=== PATIENT | female | born 1990 | race Caucasian/White ===

== ENCOUNTER 2017-06-04 07:50 | Inpatient (IN) | payer OTHER ==
[2017-06-04] MEDS ORDERED: CEFAZOLIN 2 GM/50 ML (PMX) 50 ML IVPB (08:27)
[2017-06-04] MEDS ORDERED: MISOPROSTOL 200 MCG TAB PR ×3 (08:30→16:00)
[2017-06-04] MEDS ORDERED: OXYTOCIN 30 UNITS/LR 500 ML IV ×4 (08:30→16:00)
[2017-06-04] MEDS: CITRIC ACID/SODIUM CITRATE 15 ML CUP PO (08:30)
[2017-06-04] MEDS ORDERED: CARBOPROST 250 MCG INJ IM ×3 (08:30→16:00)
[2017-06-04] MEDS ORDERED: CEFAZOLIN 2 GM/50 ML (PMX) 50 ML IV (08:30)
[2017-06-04] MEDS ORDERED: METHYLERGONOVINE 0.2 MG INJ IM ×3 (08:30→16:00)
[2017-06-04 08:36] LABS: ADD MAN DIFF? NO
[2017-06-04 08:40] LABS: ABNORMAL IP MESSAGE 1; BASOPHILS % 0.5 % (0.0-2.0); EOSINOPHILS # 0.1 10^3/ul (0.0-0.5); EOSINOPHILS % 0.8 % (0.0-7.0); HEMATOCRIT 36.3 % (37.0-47.0); HEMOGLOBIN 11.9 g/dl (12.0-16.0); LYMPHOCYTES # 2.2 10^3/ul (0.8-2.9); LYMPHOCYTES % 25.8 % (15.0-51.0); MEAN CORPUSCULAR HEMOGLOBIN 26.9 pg (29.0-33.0); MEAN CORPUSCULAR HGB CONC 32.8 g/dl (32.0-37.0); MEAN CORPUSCULAR VOLUME 82.1 fl (82.0-101.0); MONOCYTE # 0.4 10^3/ul (0.3-0.9); MONOCYTES % 5.2 % (0.0-11.0); NEUTROPHIL # 5.6 10^3/ul (1.6-7.5); NEUTROPHILS % 67.5 % (39.0-77.0); PLATELET COUNT 118 10^3/UL (140-415); RED BLOOD COUNT 4.42 10^6/ul (4.20-5.40); RED CELL DISTRIBUTION WIDTH 14.6 % (11.5-14.5)
[2017-06-04 08:40] LABS: WHITE BLOOD COUNT 8.3 10^3/ul (4.8-10.8)
[2017-06-04] MEDS ORDERED: METOCLOPRAMIDE 10 MG INJ (08:41)
[2017-06-04] MEDS ORDERED: morphine SULFATE/PF (10 MG/10 ML) INJ (08:41)
[2017-06-04] MEDS ORDERED: KETOROLAC 30 MG INJ (08:41)
[2017-06-04] MEDS ORDERED: ONDANSETRON 4 MG INJ (08:41)
[2017-06-04] MEDS: LACTATED RINGER'S 1,000 ML IV ×3 (08:41→12:13)
[2017-06-04 08:49] LABS: POSITIVE DIFF @See below
[2017-06-04 09:00] LABS: INR 0.82; PROTIME 11.4 Sec (11.9-14.9); PT RATIO 0.9
[2017-06-04 09:29] LABS: HEPATITIS B SURFACE ANTIGEN NEGATIVE (NEGATIVE)
[2017-06-04] MEDS ORDERED: BUTORPHANOL 2 MG INJ IV (10:00)
[2017-06-04] MEDS ORDERED: IBUPROFEN 600 MG TAB PO (10:00)
[2017-06-04] MEDS ORDERED: LIDOCAINE 1% (MPF) 30 ML INJ INJ (10:00)
[2017-06-04] MEDS ORDERED: FENTAnyl 2MCG/ML-ROPIV 0.2% 100 ML (10:03)
[2017-06-04] MEDS ORDERED: AMPICILLIN 2 GM/NS (PMX) 100 ML (10:28)
[2017-06-04] MEDS: AMPICILLIN 2 GM/NS (PMX) 100 ML IVPB (10:30)
[2017-06-04] MEDS ORDERED: AMPICILLIN 1 GM/NS (PMX) 50 ML IVPB (13:00)
[2017-06-04] MEDS: OXYTOCIN 30 UNITS/LR 500 ML IV (13:59)
[2017-06-04 15:19] LABS: RAPID PLASMA REAGIN NONREACTIVE (NR)
[2017-06-04] MEDS: LACTATED RINGER'S 1,000 ML IV* ×2 (15:46→23:46)
[2017-06-04] MEDS ORDERED: ZOLPIDEM 5 MG TAB PO (16:00)
[2017-06-04] MEDS ORDERED: HYDROCODONE/APAP (5/325) TAB PO ×2 (16:00)
[2017-06-04] MEDS: BENZOCAINE 20% 56 ML SPRAY TOP (18:19)
[2017-06-04] MEDS: DIBUCAINE 1% 30 GM OINT TOP (18:19)
[2017-06-04] MEDS: WITCH HAZEL/GLYCERIN PAD PR (18:19)
[2017-06-04] MEDS: LANOLIN 7 GM TUBE TOP (18:20)
[2017-06-04] MEDS: CEPHALEXIN 500 MG CAP PO (18:20)
[2017-06-04] MEDS: IBUPROFEN 600 MG TAB PO (18:20)
[2017-06-04] MEDS: MAGNESIUM HYDROXIDE 30ML CUP PO (20:55)
[2017-06-04] MEDS: SENNA/DOCUSATE NA (8.6MG/50MG) TAB PO (20:55)
[2017-06-05] MEDS: IBUPROFEN 600 MG TAB PO ×5 (00:08→23:55)
[2017-06-05] MEDS: CEPHALEXIN 500 MG CAP PO ×5 (00:08→23:55)
[2017-06-05 08:20] LABS: ADD MAN DIFF? NO
[2017-06-05 08:26] LABS: WHITE BLOOD COUNT 10.9 10^3/ul (4.8-10.8)
[2017-06-05 08:26] LABS: ABNORMAL IP MESSAGE 1; BASOPHIL # 0.1 10^3/ul (0.0-0.1); BASOPHILS % 0.5 % (0.0-2.0); EOSINOPHILS # 0.1 10^3/ul (0.0-0.5); EOSINOPHILS % 0.9 % (0.0-7.0); HEMATOCRIT 31.1 % (37.0-47.0); HEMOGLOBIN 10.1 g/dl (12.0-16.0); LYMPHOCYTES # 2.4 10^3/ul (0.8-2.9); LYMPHOCYTES % 21.8 % (15.0-51.0); MEAN CORPUSCULAR HEMOGLOBIN 26.6 pg (29.0-33.0); MEAN CORPUSCULAR HGB CONC 32.5 g/dl (32.0-37.0); MEAN CORPUSCULAR VOLUME 82.1 fl (82.0-101.0); MONOCYTE # 0.7 10^3/ul (0.3-0.9); NEUTROPHIL # 7.7 10^3/ul (1.6-7.5); NEUTROPHILS % 70.5 % (39.0-77.0); PLATELET COUNT 97 10^3/UL (140-415); RED BLOOD COUNT 3.79 10^6/ul (4.20-5.40); RED CELL DISTRIBUTION WIDTH 14.8 % (11.5-14.5)
[2017-06-05 08:37] LABS: POSITIVE DIFF @See below
[2017-06-05] MEDS: MAGNESIUM HYDROXIDE 30ML CUP PO ×2 (09:21→21:00)
[2017-06-05] MEDS: SENNA/DOCUSATE NA (8.6MG/50MG) TAB PO ×2 (09:21→21:00)
[2017-06-05] MEDS: LACTATED RINGER'S 1,000 ML IV* ×3 (19:00→23:46)
[2017-06-06] MEDS: IBUPROFEN 600 MG TAB PO ×2 (06:12→11:49)
[2017-06-06] MEDS: CEPHALEXIN 500 MG CAP PO ×2 (06:12→11:49)
[2017-06-06] MEDS: LACTATED RINGER'S 1,000 ML IV* (07:46)
[2017-06-06] MEDS: MAGNESIUM HYDROXIDE 30ML CUP PO (09:00)
[2017-06-06] MEDS: SENNA/DOCUSATE NA (8.6MG/50MG) TAB PO (09:00)
[2017-06-06] MEDS: VARICELLA VACCINE LIVE/PF 1,350 UNIT/0.5 ML ML SC* (09:04)
[2017-06-06] MEDS: MEASLES,MUMPS,RUBELLA VACCINE INJ SC* (09:04)
[2017-06-06] MEDS: DIPHTH/TET/ACEL PERTUSS (ADULT) 0.5 ML VIAL IM* (09:05)
== END 2017-06-06 13:10 | disposition home or self-care (01) | DRG 775 ==
LOC: OBT 07:50 → L-D 07:52 → OBT 08:15 → L-D 08:15 → PP1 15:55
PROVIDERS: Obstetrics & Gynecology
PROC: 10E0XZZ Delivery of Products of Conception, External Approach (ICD-10-PCS; principal; 2017-06-04)
PROC: 3E0P7VZ Introduction of Hormone into Female Reproductive, Via Natural or Artificial Opening (ICD-10-PCS; 2017-06-04)
DX: O34.211 Maternal care for low transverse scar from previous cesarean delivery (principal); Z37.0 Single live birth; Z3A.37 37 weeks gestation of pregnancy
CPT/HCPCS: 62319; 76815; 85025; 85610; 85730; 86592; 86850; 86900; 86901; 87340

== ENCOUNTER 2017-10-22 02:22 | Emergency (ER) | payer OTHER ==
[2017-10-22] MEDS: ONDANSETRON 4 MG INJ IV (03:22)
[2017-10-22] MEDS: KETOROLAC 15 MG INJ IV (03:23)
[2017-10-22] MEDS: SOD CHLORIDE 0.9% 1,000 ML IV (03:23)
[2017-10-22] MEDS: DICYCLOMINE 20 MG INJ IM (03:31)
== END 2017-10-22 04:15 | disposition home or self-care (01) ==
LOC: E/R 02:22
DX: R10.13 Epigastric pain (principal); E86.0 Dehydration
CPT/HCPCS: 81025; 96372; 96374; 96375; 99284-25

== ENCOUNTER 2017-10-23 15:44 | Inpatient (IN) | payer OTHER ==
[2017-10-23] MEDS: LIDOCAINE/MYLANTA 40 ML BTL PO (18:06)
[2017-10-23] MEDS: ONDANSETRON 4 MG INJ IV (18:06)
[2017-10-23] MEDS: SOD CHLORIDE 0.9% 1,000 ML IV ×3 (18:06→20:10)
[2017-10-23 18:22] LABS: ADD MAN DIFF? NO
[2017-10-23 18:25] LABS: WHITE BLOOD COUNT 22.3 10^3/ul (4.8-10.8)
[2017-10-23 18:25] LABS: ABNORMAL IP MESSAGE 1; BASOPHIL # 0.1 10^3/ul (0.0-0.1); BASOPHILS % 0.2 % (0.0-2.0); EOSINOPHILS % 0.2 % (0.0-7.0); HEMATOCRIT 39.9 % (37.0-47.0); HEMOGLOBIN 13.3 g/dl (12.0-16.0); LYMPHOCYTES # 1.9 10^3/ul (0.8-2.9); LYMPHOCYTES % 8.6 % (15.0-51.0); MEAN CORPUSCULAR HEMOGLOBIN 27.1 pg (29.0-33.0); MEAN CORPUSCULAR HGB CONC 33.3 g/dl (32.0-37.0); MEAN CORPUSCULAR VOLUME 81.3 fl (82.0-101.0); MEAN PLATELET VOLUME 12.2 fl (7.4-10.4); MONOCYTES % 8.7 % (0.0-11.0); NEUTROPHIL # 18.2 10^3/ul (1.6-7.5); NEUTROPHILS % 81.7 % (39.0-77.0); PLATELET COUNT 251 10^3/UL (140-415); RED BLOOD COUNT 4.91 10^6/ul (4.20-5.40); RED CELL DISTRIBUTION WIDTH 15.2 % (11.5-14.5)
[2017-10-23 18:30] LABS: ADD UMIC YES; UR ASCORBIC ACID NEGATIVE (NEGATIVE); UR BACTERIA FEW /HPF (NONE SEEN); UR BILIRUBIN (Dip) NEGATIVE (NEGATIVE); UR BLOOD (Dip) 2+ mg/dL (NEGATIVE); UR CLARITY SLIGHTLY CLOUDY (CLEAR); UR COLOR YELLOW (YELLOW); UR GLUCOSE (Dip) NEGATIVE (NEGATIVE); UR KETONES (Dip) NEGATIVE (NEGATIVE); UR LEUKOCYTE ESTERASE (Dip) NEGATIVE Leu/ul (NEGATIVE); UR MUCUS FEW /HPF (NONE SEEN); UR NITRITE (Dip) NEGATIVE (NEGATIVE); UR RBC 1 /HPF (0-5); UR SPECIFIC GRAVITY (Dip) 1.016 (1.003-1.030); UR SQUAMOUS EPITHELIAL CELL FEW /HPF (FEW); UR TOTAL PROTEIN (Dip) 2+ mg/dl (NEGATIVE); UR UROBILINOGEN (Dip) 1+ mg/dL (NEGATIVE); UR WBC 4 /HPF (0-5)
[2017-10-23 18:41] LABS: POSITIVE DIFF @See below
[2017-10-23 19:05] LABS: ALANINE AMINOTRANSFERASE 57 IU/L (13-69); ALBUMIN 4.2 g/dl (3.3-4.9); ALBUMIN/GLOBULIN RATIO 1.27; ALKALINE PHOSPHATASE 113 IU/L (42-121); ANION GAP 17 (8-16); ASPARTATE AMINO TRANSFERASE 32 IU/L (15-46); BILIRUBIN,INDIRECT 2.6 mg/dl (0-1.1); BILIRUBIN,TOTAL 2.6 mg/dl (0.2-1.3); BLOOD UREA NITROGEN 12 mg/dl (7-20); CALCIUM 8.4 mg/dl (8.4-10.2); CARBON DIOXIDE 24 mmol/L (21-31); CHLORIDE 101 mmol/L (97-110); CREATININE 0.63 mg/dl (0.44-1.00); GLUCOSE 121 mg/dl (70-220); POTASSIUM 3.6 mmol/L (3.5-5.1); SODIUM 138 mmol/L (135-144); TOTAL PROTEIN 7.5 g/dl (6.1-8.1)
[2017-10-23 19:12] LABS: LIPASE 3628 U/L (23-300)
[2017-10-23] MEDS: morphine 4 MG/ML VIAL IV (19:18)
[2017-10-23] MEDS: PIPER-TAZO 3.375 GM IV (PMX) 100 ML IVPB (19:55)
[2017-10-23] MEDS: HYDROmorphONE 0.5 MG/0.5 ML SYG IV (20:27)
[2017-10-23] MEDS: HYDROmorphONE 2 MG/ML SYG IV (21:49)
[2017-10-24] MEDS: HYDROmorphONE 0.5 MG/0.5 ML SYG IV (01:30)
[2017-10-24] MEDS ORDERED: MAGNESIUM HYDROXIDE 30ML CUP PO (02:00)
[2017-10-24] MEDS ORDERED: NACL 0.9% 3 ML SYG IV (02:00)
[2017-10-24] MEDS ORDERED: ZOLPIDEM 5 MG TAB PO (02:00)
[2017-10-24] MEDS ORDERED: DOCUSATE SODIUM 100 MG CAP PO (02:00)
[2017-10-24] MEDS ORDERED: ACETAMINOPHEN 650 MG SUPP PR (02:00)
[2017-10-24] MEDS ORDERED: BISACODYL (EC) 5 MG TAB PO (02:00)
[2017-10-24] MEDS: DEXTROSE 5%-0.45% NACL 1,000 ML IV ×4 (02:43→20:04)
[2017-10-24] MEDS: morphine 2 MG INJ IV ×5 (02:49→23:35)
[2017-10-24] MEDS: PANTOPRAZOLE 40 MG INJ IV (05:48)
[2017-10-24] MEDS: CEFTRIAXONE 1 GM/50 ML (PMX) 50 ML IVPB (08:29)
[2017-10-24] MEDS: ACETAMINOPHEN 325 MG TAB PO (10:26)
[2017-10-25] MEDS: DEXTROSE 5%-0.45% NACL 1,000 ML IV ×2 (04:34→14:17)
[2017-10-25] MEDS: PANTOPRAZOLE 40 MG INJ IV (04:38)
[2017-10-25 05:30] LABS: ADD MAN DIFF? NO
[2017-10-25 05:37] LABS: WHITE BLOOD COUNT 14.6 10^3/ul (4.8-10.8)
[2017-10-25 05:37] LABS: ABNORMAL IP MESSAGE 1; BASOPHILS % 0.3 % (0.0-2.0); EOSINOPHILS # 0.3 10^3/ul (0.0-0.5); EOSINOPHILS % 1.8 % (0.0-7.0); HEMATOCRIT 31.7 % (37.0-47.0); HEMOGLOBIN 10.5 g/dl (12.0-16.0); LYMPHOCYTES # 1.8 10^3/ul (0.8-2.9); LYMPHOCYTES % 12.5 % (15.0-51.0); MEAN CORPUSCULAR HEMOGLOBIN 27.8 pg (29.0-33.0); MEAN CORPUSCULAR HGB CONC 33.1 g/dl (32.0-37.0); MEAN CORPUSCULAR VOLUME 83.9 fl (82.0-101.0); MEAN PLATELET VOLUME 11.6 fl (7.4-10.4); MONOCYTE # 1.9 10^3/ul (0.3-0.9); MONOCYTES % 13.2 % (0.0-11.0); NEUTROPHIL # 10.4 10^3/ul (1.6-7.5); NEUTROPHILS % 71.7 % (39.0-77.0); PLATELET COUNT 194 10^3/UL (140-415); RED BLOOD COUNT 3.78 10^6/ul (4.20-5.40); RED CELL DISTRIBUTION WIDTH 15.1 % (11.5-14.5)
[2017-10-25 05:52] LABS: ALANINE AMINOTRANSFERASE 34 IU/L (13-69); ALBUMIN 3.1 g/dl (3.3-4.9); ALKALINE PHOSPHATASE 85 IU/L (42-121); ANION GAP 8 (8-16); ASPARTATE AMINO TRANSFERASE 19 IU/L (15-46); BILIRUBIN,INDIRECT 1.2 mg/dl (0-1.1); BILIRUBIN,TOTAL 1.2 mg/dl (0.2-1.3); BLOOD UREA NITROGEN 2 mg/dl (7-20); CALCIUM 7.7 mg/dl (8.4-10.2); CARBON DIOXIDE 30 mmol/L (21-31); CHLORIDE 102 mmol/L (97-110); CREATININE 0.54 mg/dl (0.44-1.00); GLUCOSE 96 mg/dl (70-220); SODIUM 137 mmol/L (135-144); TOTAL PROTEIN 6.2 g/dl (6.1-8.1)
[2017-10-25 05:55] LABS: POSITIVE DIFF @See below
[2017-10-25 06:10] LABS: HEMOGLOBIN A1C 5.4 % (0-5.9)
[2017-10-25] MEDS: CEFTRIAXONE 1 GM/50 ML (PMX) 50 ML IVPB (08:50)
[2017-10-25] MEDS: POTASSIUM CHLORIDE 100 ML IVPB ×2 (14:17→16:17)
[2017-10-25] MEDS: morphine 2 MG INJ IV ×2 (14:25→22:30)
[2017-10-25 17:40] LABS: LIPASE 1330 U/L (23-300)
[2017-10-26] MEDS: DEXTROSE 5%-0.45% NACL 1,000 ML IV ×3 (04:44→20:09)
[2017-10-26 05:32] LABS: ADD MAN DIFF? NO
[2017-10-26] MEDS: PANTOPRAZOLE 40 MG INJ IV (05:32)
[2017-10-26 05:38] LABS: WHITE BLOOD COUNT 13.3 10^3/ul (4.8-10.8)
[2017-10-26 05:38] LABS: ABNORMAL IP MESSAGE 1; BASOPHIL # 0.1 10^3/ul (0.0-0.1); BASOPHILS % 0.4 % (0.0-2.0); EOSINOPHILS # 0.3 10^3/ul (0.0-0.5); EOSINOPHILS % 2.3 % (0.0-7.0); HEMOGLOBIN 10.4 g/dl (12.0-16.0); LYMPHOCYTES # 1.8 10^3/ul (0.8-2.9); LYMPHOCYTES % 13.9 % (15.0-51.0); MEAN CORPUSCULAR HGB CONC 33.5 g/dl (32.0-37.0); MEAN CORPUSCULAR VOLUME 83.6 fl (82.0-101.0); MEAN PLATELET VOLUME 11.3 fl (7.4-10.4); MONOCYTE # 1.7 10^3/ul (0.3-0.9); MONOCYTES % 12.9 % (0.0-11.0); NEUTROPHIL # 9.3 10^3/ul (1.6-7.5); PLATELET COUNT 231 10^3/UL (140-415); RED BLOOD COUNT 3.71 10^6/ul (4.20-5.40); RED CELL DISTRIBUTION WIDTH 15.2 % (11.5-14.5)
[2017-10-26 05:46] LABS: POSITIVE DIFF @See below
[2017-10-26 05:55] LABS: LIPASE 1095 U/L (23-300)
[2017-10-26 06:02] LABS: ALANINE AMINOTRANSFERASE 37 IU/L (13-69); ALBUMIN 3.1 g/dl (3.3-4.9); ALBUMIN/GLOBULIN RATIO 0.93; ALKALINE PHOSPHATASE 139 IU/L (42-121); ANION GAP 10 (8-16); ASPARTATE AMINO TRANSFERASE 24 IU/L (15-46); BILIRUBIN,INDIRECT 1.2 mg/dl (0-1.1); BILIRUBIN,TOTAL 1.2 mg/dl (0.2-1.3); BLOOD UREA NITROGEN 4 mg/dl (7-20); CALCIUM 8.3 mg/dl (8.4-10.2); CARBON DIOXIDE 29 mmol/L (21-31); CHLORIDE 101 mmol/L (97-110); CREATININE 0.63 mg/dl (0.44-1.00); GLUCOSE 87 mg/dl (70-220); POTASSIUM 3.8 mmol/L (3.5-5.1); SODIUM 136 mmol/L (135-144); TOTAL PROTEIN 6.4 g/dl (6.1-8.1)
[2017-10-26] MEDS: CEFTRIAXONE 1 GM/50 ML (PMX) 50 ML IVPB (08:41)
[2017-10-26] MEDS: morphine 2 MG INJ IV ×3 (12:05→23:00)
[2017-10-27] MEDS: DEXTROSE 5%-0.45% NACL 1,000 ML IV ×3 (04:35→22:14)
[2017-10-27] MEDS: PANTOPRAZOLE 40 MG INJ IV (05:19)
[2017-10-27] MEDS: CEFTRIAXONE 1 GM/50 ML (PMX) 50 ML IVPB (08:56)
[2017-10-27] MEDS: morphine 2 MG INJ IV ×2 (09:40→22:15)
[2017-10-27 10:59] LABS: LIPASE 932 U/L (23-300)
[2017-10-27] MEDS: ONDANSETRON 4 MG INJ IV (22:15)
[2017-10-28] MEDS: PANTOPRAZOLE 40 MG INJ IV (05:10)
[2017-10-28] MEDS: DEXTROSE 5%-0.45% NACL 1,000 ML IV ×3 (05:12→20:39)
[2017-10-28 05:34] LABS: ADD MAN DIFF? NO
[2017-10-28 05:38] LABS: WHITE BLOOD COUNT 8.8 10^3/ul (4.8-10.8)
[2017-10-28 05:38] LABS: BASOPHILS % 0.5 % (0.0-2.0); EOSINOPHILS # 0.3 10^3/ul (0.0-0.5); EOSINOPHILS % 3.9 % (0.0-7.0); HEMATOCRIT 29.6 % (37.0-47.0); HEMOGLOBIN 9.8 g/dl (12.0-16.0); LYMPHOCYTES # 2.4 10^3/ul (0.8-2.9); LYMPHOCYTES % 27.9 % (15.0-51.0); MEAN CORPUSCULAR HEMOGLOBIN 27.8 pg (29.0-33.0); MEAN CORPUSCULAR HGB CONC 33.1 g/dl (32.0-37.0); MEAN CORPUSCULAR VOLUME 83.9 fl (82.0-101.0); MEAN PLATELET VOLUME 10.6 fl (7.4-10.4); MONOCYTES % 11.1 % (0.0-11.0); NEUTROPHIL # 4.9 10^3/ul (1.6-7.5); NEUTROPHILS % 56.1 % (39.0-77.0); PLATELET COUNT 318 10^3/UL (140-415); RED BLOOD COUNT 3.53 10^6/ul (4.20-5.40); RED CELL DISTRIBUTION WIDTH 15.3 % (11.5-14.5)
[2017-10-28 05:58] LABS: LIPASE 1032 U/L (23-300)
[2017-10-28 07:26] LABS: ANION GAP 10 (8-16); CALCIUM 8.6 mg/dl (8.4-10.2); CARBON DIOXIDE 27 mmol/L (21-31); CHLORIDE 106 mmol/L (97-110); CREATININE 0.54 mg/dl (0.44-1.00); GLUCOSE 99 mg/dl (70-220); SODIUM 140 mmol/L (135-144)
[2017-10-28 07:39] LABS: BLOOD UREA NITROGEN < 2 mg/dl (7-20)
[2017-10-28 07:40] LABS: POTASSIUM 2.9 mmol/L (3.5-5.1)
[2017-10-28] MEDS: CEFTRIAXONE 1 GM/50 ML (PMX) 50 ML IVPB (09:04)
[2017-10-28] MEDS: POTASSIUM CHLORIDE 100 ML IVPB ×2 (09:53→11:00)
[2017-10-28] MEDS: POTASSIUM CHLORIDE (SR) 20 MEQ TAB PO (17:54)
[2017-10-29 06:03] LABS: ADD MAN DIFF? NO
[2017-10-29 06:06] LABS: BASOPHILS % 0.4 % (0.0-2.0); EOSINOPHILS # 0.3 10^3/ul (0.0-0.5); EOSINOPHILS % 3.6 % (0.0-7.0); HEMATOCRIT 30.9 % (37.0-47.0); LYMPHOCYTES # 1.9 10^3/ul (0.8-2.9); LYMPHOCYTES % 25.6 % (15.0-51.0); MEAN CORPUSCULAR HEMOGLOBIN 26.9 pg (29.0-33.0); MEAN CORPUSCULAR HGB CONC 32.4 g/dl (32.0-37.0); MEAN CORPUSCULAR VOLUME 83.1 fl (82.0-101.0); MEAN PLATELET VOLUME 10.3 fl (7.4-10.4); MONOCYTE # 0.9 10^3/ul (0.3-0.9); MONOCYTES % 11.5 % (0.0-11.0); NEUTROPHIL # 4.3 10^3/ul (1.6-7.5); NEUTROPHILS % 58.6 % (39.0-77.0); PLATELET COUNT 371 10^3/UL (140-415); RED BLOOD COUNT 3.72 10^6/ul (4.20-5.40); RED CELL DISTRIBUTION WIDTH 15.4 % (11.5-14.5)
[2017-10-29 06:06] LABS: WHITE BLOOD COUNT 7.4 10^3/ul (4.8-10.8)
[2017-10-29 06:35] LABS: ANION GAP 13 (8-16); BLOOD UREA NITROGEN 3 mg/dl (7-20); CALCIUM 8.7 mg/dl (8.4-10.2); CARBON DIOXIDE 25 mmol/L (21-31); CHLORIDE 107 mmol/L (97-110); CREATININE 0.58 mg/dl (0.44-1.00); GLUCOSE 104 mg/dl (70-220); LIPASE 1207 U/L (23-300); POTASSIUM 3.4 mmol/L (3.5-5.1); SODIUM 142 mmol/L (135-144)
[2017-10-29] MEDS: DEXTROSE 5%-0.45% NACL 1,000 ML IV ×2 (06:36→07:39)
[2017-10-29] MEDS: PANTOPRAZOLE 40 MG INJ IV (06:37)
[2017-10-29] MEDS: CEFTRIAXONE 1 GM/50 ML (PMX) 50 ML IVPB (08:57)
[2017-10-29] MEDS ORDERED: POTASSIUM CHLORIDE 100 ML IVPB (11:00)
[2017-10-29] MEDS: POTASSIUM CHLORIDE (SR) 20 MEQ TAB PO (11:47)
== END 2017-10-29 17:00 | disposition home or self-care (01) | DRG 440 ==
LOC: MS3 20:45 → MS1 10-28 08:00 → FTE 15:44
DX: K85.10 Biliary acute pancreatitis without necrosis or infection (principal); K80.20 Calculus of gallbladder without cholecystitis without obstruction; E87.6 Hypokalemia; D64.9 Anemia, unspecified; E66.9 Obesity, unspecified; Z68.36 Body mass index [BMI] 36.0-36.9, adult
CPT/HCPCS: 36415; 74176; 74181; 76705; 80048; 80053; 81001; 81025; 83036; 83690; 85025; 96374; 96375; 99285-25

== ENCOUNTER 2018-08-12 23:15 | Inpatient (IN) | payer OTHER ==
[2018-08-12] MEDS: LACTATED RINGER'S 1,000 ML IV ×2 (23:36→23:56)
[2018-08-13] MEDS ORDERED: LIDOCAINE 1% (MPF) 30 ML INJ INJ
[2018-08-13] MEDS ORDERED: BUTORPHANOL 2 MG INJ IV
[2018-08-13] MEDS ORDERED: IBUPROFEN 600 MG TAB PO
[2018-08-13] MEDS: AMPICILLIN 2 GM/NS (PMX) 100 ML IV (00:01)
[2018-08-13 00:03] LABS: ADD MAN DIFF? NO
[2018-08-13 00:11] LABS: WHITE BLOOD COUNT 9.5 10^3/ul (4.8-10.8)
[2018-08-13 00:11] LABS: ABNORMAL IP MESSAGE 1; BASOPHILS % 0.4 % (0.0-2.0); EOSINOPHILS # 0.1 10^3/ul (0.0-0.5); EOSINOPHILS % 1.3 % (0.0-7.0); HEMATOCRIT 32.3 % (37.0-47.0); LYMPHOCYTES % 31.1 % (15.0-51.0); MEAN CORPUSCULAR HEMOGLOBIN 25.3 pg (29.0-33.0); MEAN CORPUSCULAR VOLUME 81.6 fl (82.0-101.0); MONOCYTE # 0.6 10^3/ul (0.3-0.9); MONOCYTES % 6.2 % (0.0-11.0); NEUTROPHIL # 5.8 10^3/ul (1.6-7.5); NEUTROPHILS % 60.6 % (39.0-77.0); PLATELET COUNT 157 10^3/UL (140-415); RED BLOOD COUNT 3.96 10^6/ul (4.20-5.40); RED CELL DISTRIBUTION WIDTH 14.5 % (11.5-14.5)
[2018-08-13 00:19] LABS: MEAN PLATELET VOLUME 13.6 fl (7.4-10.4); POSITIVE DIFF @See below
[2018-08-13 00:30] LABS: INR 0.89; PARTIAL THROMBOPLASTIN TIME 27.2 Sec (23.0-35.0); PROTIME 12.2 Sec (11.9-14.9)
[2018-08-13 01:01] LABS: HEPATITIS B SURFACE ANTIGEN NEGATIVE (NEGATIVE)
[2018-08-13] MEDS: OXYTOCIN 30 UNITS/LR 500 ML IV ×2 (01:01→01:13)
[2018-08-13] MEDS ORDERED: AMPICILLIN 1 GM/NS (PMX) 50 ML IV (04:00)
[2018-08-13 04:19] LABS: AMPHETAMINE/METHAMPHETAMINE NEGATIVE (NEGATIVE); BARBITURATES NEGATIVE (NEGATIVE); BENZODIAZEPINES NEGATIVE (NEGATIVE); CANNABINOIDS POSITIVE (NEGATIVE); COCAINE NEGATIVE (NEGATIVE); OPIATES NEGATIVE (NEGATIVE)
[2018-08-13] MEDS ORDERED: MISOPROSTOL 200 MCG TAB PR ×2 (05:30)
[2018-08-13] MEDS ORDERED: METHYLERGONOVINE 0.2 MG INJ IM ×2 (05:30)
[2018-08-13] MEDS ORDERED: OXYTOCIN 30 UNITS/LR 500 ML IV ×2 (05:30)
[2018-08-13] MEDS ORDERED: ACETAMINOPHEN 325 MG TAB PO (05:30)
[2018-08-13] MEDS ORDERED: DIBUCAINE 1% 30 GM OINT TOP (05:30)
[2018-08-13] MEDS ORDERED: CARBOPROST 250 MCG INJ IM ×2 (05:30)
[2018-08-13] MEDS: LACTATED RINGER'S 1,000 ML IV* (07:46)
[2018-08-13] MEDS: HYDROCODONE/APAP (5/325) TAB PO ×2 (08:23→21:20)
[2018-08-13] MEDS: SENNA/DOCUSATE NA (8.6MG/50MG) TAB PO ×2 (08:23→21:20)
[2018-08-13] MEDS: WITCH HAZEL/GLYCERIN PAD PR (08:23)
[2018-08-13] MEDS: BENZOCAINE 20% 56 ML SPRAY TOP (08:24)
[2018-08-13] MEDS: IBUPROFEN 600 MG TAB PO ×2 (12:29→18:10)
[2018-08-13 17:20] LABS: RAPID PLASMA REAGIN NONREACTIVE (NR)
[2018-08-14] MEDS: IBUPROFEN 600 MG TAB PO ×4 (00:32→18:00)
[2018-08-14 08:47] LABS: ADD MAN DIFF? NO
[2018-08-14 08:56] LABS: WHITE BLOOD COUNT 9.4 10^3/ul (4.8-10.8)
[2018-08-14 08:56] LABS: ABNORMAL IP MESSAGE 1; BASOPHIL # 0.1 10^3/ul (0.0-0.1); BASOPHILS % 0.6 % (0.0-2.0); EOSINOPHILS # 0.2 10^3/ul (0.0-0.5); EOSINOPHILS % 2.2 % (0.0-7.0); HEMATOCRIT 29.4 % (37.0-47.0); HEMOGLOBIN 9.2 g/dl (12.0-16.0); LYMPHOCYTES # 3.3 10^3/ul (0.8-2.9); LYMPHOCYTES % 35.1 % (15.0-51.0); MEAN CORPUSCULAR HEMOGLOBIN 25.3 pg (29.0-33.0); MEAN CORPUSCULAR HGB CONC 31.3 g/dl (32.0-37.0); MEAN PLATELET VOLUME 13.2 fl (7.4-10.4); MONOCYTE # 0.5 10^3/ul (0.3-0.9); MONOCYTES % 5.6 % (0.0-11.0); NEUTROPHIL # 5.3 10^3/ul (1.6-7.5); NEUTROPHILS % 56.3 % (39.0-77.0); PLATELET COUNT 146 10^3/UL (140-415); RED BLOOD COUNT 3.63 10^6/ul (4.20-5.40); RED CELL DISTRIBUTION WIDTH 14.6 % (11.5-14.5)
[2018-08-14] MEDS: SENNA/DOCUSATE NA (8.6MG/50MG) TAB PO ×2 (09:00→21:00)
[2018-08-14 09:06] LABS: POSITIVE DIFF @See below
[2018-08-15] MEDS: IBUPROFEN 600 MG TAB PO ×3 (00:07→12:00)
[2018-08-15] MEDS: SENNA/DOCUSATE NA (8.6MG/50MG) TAB PO (09:00)
[2018-08-15] MEDS: DIPHTH/TET/ACEL PERTUSS (ADULT) 0.5 ML VIAL IM* (09:00)
== END 2018-08-15 15:14 | disposition home or self-care (01) | DRG 807 ==
LOC: OBT 23:15 → L-D 08-13 00:30 → PP1 08-13 16:23 → OBT 23:30 → L-D 23:30
PROVIDERS: Obstetrics & Gynecology
PROC: 4A1HXCZ Monitoring of Products of Conception, Cardiac Rate, External Approach (ICD-10-PCS; 2018-08-12)
PROC: 10E0XZZ Delivery of Products of Conception, External Approach (ICD-10-PCS; principal; 2018-08-13)
DX: O69.81X0 Labor and delivery complicated by cord around neck, without compression, not applicable or unspecified (principal); Z37.0 Single live birth; O34.219 Maternal care for unspecified type scar from previous cesarean delivery; Z3A.38 38 weeks gestation of pregnancy
CPT/HCPCS: 76815; 80307; 85025; 85610; 85730; 86592; 86850; 86900; 86901; 87340; 99464

== ENCOUNTER 2018-09-13 13:33 | Emergency (ER) | payer OTHER ==
[2018-09-13 16:35] LABS: ADD MAN DIFF? NO
[2018-09-13 16:38] LABS: WHITE BLOOD COUNT 12.3 10^3/ul (4.8-10.8)
[2018-09-13 16:38] LABS: BASOPHIL # 0.1 10^3/ul (0.0-0.1); BASOPHILS % 0.4 % (0.0-2.0); EOSINOPHILS % 0.1 % (0.0-7.0); HEMATOCRIT 40.6 % (37.0-47.0); HEMOGLOBIN 12.9 g/dl (12.0-16.0); LYMPHOCYTES # 1.6 10^3/ul (0.8-2.9); LYMPHOCYTES % 13.1 % (15.0-51.0); MEAN CORPUSCULAR HEMOGLOBIN 25.9 pg (29.0-33.0); MEAN CORPUSCULAR HGB CONC 31.8 g/dl (32.0-37.0); MEAN CORPUSCULAR VOLUME 81.5 fl (82.0-101.0); MEAN PLATELET VOLUME 11.7 fl (7.4-10.4); MONOCYTE # 0.4 10^3/ul (0.3-0.9); NEUTROPHIL # 10.2 10^3/ul (1.6-7.5); NEUTROPHILS % 83.2 % (39.0-77.0); PLATELET COUNT 234 10^3/UL (140-415); RED BLOOD COUNT 4.98 10^6/ul (4.20-5.40); RED CELL DISTRIBUTION WIDTH 17.2 % (11.5-14.5)
[2018-09-13 16:55] LABS: ANION GAP 8 (5-13); BLOOD UREA NITROGEN 9 mg/dl (7-20); CALCIUM 9.5 mg/dl (8.4-10.2); CARBON DIOXIDE 27 mmol/L (21-31); CHLORIDE 104 mmol/L (97-110); CREATININE 0.61 mg/dl (0.44-1.00); Estimated GFR > 60 mL/min (>60); GLUCOSE 108 mg/dl (70-220); POTASSIUM 3.9 mmol/L (3.5-5.1); SODIUM 139 mmol/L (135-144)
[2018-09-13] MEDS: LORAZEPAM 2 MG INJ IV (17:26)
== END 2018-09-13 18:20 | disposition home or self-care (01) ==
LOC: E/R 13:33
DX: R56.9 Unspecified convulsions (principal); R40.2142 Coma scale, eyes open, spontaneous, at arrival to emergency department; R40.2362 Coma scale, best motor response, obeys commands, at arrival to emergency department; R40.2252 Coma scale, best verbal response, oriented, at arrival to emergency department
CPT/HCPCS: 36415; 80048; 85025; 96374; 99284-25

== ENCOUNTER 2018-09-13 22:47 | Inpatient (IN) | payer OTHER ==
[2018-09-13] MEDS: LEVETIRACETAM 1000 MG (PMX) 100 ML IVPB (23:11)
[2018-09-13 23:17] LABS: ADD MAN DIFF? NO
[2018-09-13 23:18] LABS: WHITE BLOOD COUNT 9.7 10^3/ul (4.8-10.8)
[2018-09-13 23:18] LABS: BASOPHIL # 0.1 10^3/ul (0.0-0.1); BASOPHILS % 0.5 % (0.0-2.0); EOSINOPHILS # 0.1 10^3/ul (0.0-0.5); EOSINOPHILS % 1.1 % (0.0-7.0); LYMPHOCYTES % 31.3 % (15.0-51.0); MEAN CORPUSCULAR HEMOGLOBIN 25.8 pg (29.0-33.0); MEAN CORPUSCULAR HGB CONC 31.6 g/dl (32.0-37.0); MEAN CORPUSCULAR VOLUME 81.5 fl (82.0-101.0); MEAN PLATELET VOLUME 11.7 fl (7.4-10.4); MONOCYTE # 0.7 10^3/ul (0.3-0.9); NEUTROPHIL # 5.8 10^3/ul (1.6-7.5); NEUTROPHILS % 59.9 % (39.0-77.0); PLATELET COUNT 243 10^3/UL (140-415); RED BLOOD COUNT 4.66 10^6/ul (4.20-5.40); RED CELL DISTRIBUTION WIDTH 17.3 % (11.5-14.5)
[2018-09-13] MEDS ORDERED: BISACODYL (EC) 5 MG TAB PO (23:30)
[2018-09-13] MEDS ORDERED: LORAZEPAM 2 MG INJ IV (23:30)
[2018-09-13] MEDS ORDERED: ONDANSETRON 4 MG INJ IV ×2 (23:30)
[2018-09-13] MEDS ORDERED: ACETAMINOPHEN 325 MG TAB PO ×2 (23:30)
[2018-09-13] MEDS ORDERED: DOCUSATE SODIUM 100 MG CAP PO (23:30)
[2018-09-13 23:37] LABS: ALANINE AMINOTRANSFERASE 14 IU/L (13-69); ALBUMIN 4.2 g/dl (3.3-4.9); ALBUMIN/GLOBULIN RATIO 1.23; ALKALINE PHOSPHATASE 80 IU/L (42-121); ANION GAP 7 (5-13); ASPARTATE AMINO TRANSFERASE 20 IU/L (15-46); BLOOD UREA NITROGEN 14 mg/dl (7-20); CALCIUM 9.2 mg/dl (8.4-10.2); CARBON DIOXIDE 27 mmol/L (21-31); CHLORIDE 105 mmol/L (97-110); CREATININE 0.83 mg/dl (0.44-1.00); Estimated GFR > 60 mL/min (>60); GLUCOSE 103 mg/dl (70-220); POTASSIUM 3.5 mmol/L (3.5-5.1); SODIUM 139 mmol/L (135-144); TOTAL PROTEIN 7.6 g/dl (6.1-8.1)
[2018-09-14 06:02] LABS: MAGNESIUM 2.1 mg/dl (1.7-2.5)
[2018-09-14 06:51] LABS: HEMOGLOBIN A1C 5.4 % (0-5.9)
[2018-09-14] MEDS: LEVETIRACETAM 500 MG TAB PO ×2 (08:56→21:20)
[2018-09-14] MEDS ORDERED: LEVETIRACETAM 500 MG TAB PO (09:00)
[2018-09-14 09:42] LABS: ADD UMIC YES; UR ASCORBIC ACID NEGATIVE (NEGATIVE); UR BACTERIA FEW /HPF (NONE SEEN); UR BILIRUBIN (Dip) NEGATIVE (NEGATIVE); UR BLOOD (Dip) NEGATIVE (NEGATIVE); UR CLARITY SLIGHTLY CLOUDY (CLEAR); UR COLOR YELLOW (YELLOW); UR GLUCOSE (Dip) NEGATIVE (NEGATIVE); UR KETONES (Dip) NEGATIVE (NEGATIVE); UR LEUKOCYTE ESTERASE (Dip) 2+ Leu/ul (NEGATIVE); UR MUCUS MANY /HPF (NONE SEEN); UR NITRITE (Dip) NEGATIVE (NEGATIVE); UR RBC 2 /HPF (0-5); UR SPECIFIC GRAVITY (Dip) 1.029 (1.003-1.030); UR SQUAMOUS EPITHELIAL CELL FEW /HPF (FEW); UR TOTAL PROTEIN (Dip) NEGATIVE (NEGATIVE); UR UROBILINOGEN (Dip) 1+ mg/dL (NEGATIVE); UR WBC 8 /HPF (0-5)
[2018-09-14 09:53] LABS: AMPHETAMINE/METHAMPHETAMINE Negative (NEGATIVE); BARBITURATES Negative (NEGATIVE); BENZODIAZEPINES Negative (NEGATIVE); CANNABINOIDS Positive (NEGATIVE); COCAINE Negative (NEGATIVE); OPIATES Negative (NEGATIVE)
[2018-09-14 11:41] LABS: CHOL/HDL RATIO 4.4 RATIO; HDL CHOLESTEROL 43 mg/dl (33-83); LDL CHOLESTEROL,CALCULATED 128 mg/dl; TRIGLYCERIDES 100 mg/dl (0-149)
[2018-09-14 11:41] LABS: CHOLESTEROL 191 mg/dl (100-200)
[2018-09-14] MEDS: CEFTRIAXONE 1 GM/50 ML (PMX) 50 ML IVPB (11:44)
[2018-09-15] MEDS: NACL 0.9% 3 ML SYG IV (06:12)
[2018-09-15] MEDS: LEVETIRACETAM 500 MG TAB PO ×2 (09:27→21:50)
[2018-09-15] MEDS: CEFTRIAXONE 1 GM/50 ML (PMX) 50 ML IVPB (10:37)
[2018-09-15 21:10] LABS: ADD UMIC YES; UR ASCORBIC ACID NEGATIVE (NEGATIVE); UR BILIRUBIN (Dip) NEGATIVE (NEGATIVE); UR BLOOD (Dip) NEGATIVE (NEGATIVE); UR CLARITY SLIGHTLY CLOUDY (CLEAR); UR COLOR YELLOW (YELLOW); UR GLUCOSE (Dip) NEGATIVE (NEGATIVE); UR KETONES (Dip) NEGATIVE (NEGATIVE); UR LEUKOCYTE ESTERASE (Dip) 3+ Leu/ul (NEGATIVE); UR NITRITE (Dip) NEGATIVE (NEGATIVE); UR RBC 1 /HPF (0-5); UR SPECIFIC GRAVITY (Dip) 1.013 (1.003-1.030); UR SQUAMOUS EPITHELIAL CELL FEW /HPF (FEW); UR TOTAL PROTEIN (Dip) NEGATIVE (NEGATIVE); UR TRANSITIONAL EPI CELL FEW /HPF (NONE SEEN); UR UROBILINOGEN (Dip) NEGATIVE (NEGATIVE); UR WBC 3 /HPF (0-5)
[2018-09-16] MEDS: NACL 0.9% 3 ML SYG IV (06:28)
[2018-09-16] MEDS: LEVETIRACETAM 500 MG TAB PO (09:56)
[2018-09-16] MEDS: CEFTRIAXONE 1 GM/50 ML (PMX) 50 ML IVPB (09:58)
[2018-09-16 20:06] LABS: LEVETIRACETAM 8.4 mcg/mL (12.0-46.0)
== END 2018-09-16 13:35 | disposition home or self-care (01) | DRG 101 ==
LOC: MS1 23:19 → E/R 22:47
DX: G40.909 Epilepsy, unspecified, not intractable, without status epilepticus (principal); N39.0 Urinary tract infection, site not specified; Z91.14 Patient's other noncompliance with medication regimen; F12.90 Cannabis use, unspecified, uncomplicated; Z86.73 Personal history of transient ischemic attack (TIA), and cerebral infarction without residual deficits
CPT/HCPCS: 36415; 70450; 70553; 80053; 80061; 80177; 80307; 81001; 83036; 83735; 84443; 85025; 87086; 95819; 96374; 99285-25